=== PATIENT | male | born 1965 | race Hispanic/Latino ===

== ENCOUNTER 2023-08-11 14:06 | Emergency (ER) | payer MEDICAID ==
[~2023-08-11] VITALS: Ht 172.7 cm; Wt 95.3 kg
[2023-08-11] MEDS ORDERED: LIDOCAINE HCL 1% 20 ML VIAL INJ SCH (14:30)
[2023-08-11] MEDS ORDERED: ONDANSETRON 4MG INJ IVP ONE (14:30)
[2023-08-11] MEDS ORDERED: IBUPROFEN 600 MG TABLET PO ONE (14:30)
[2023-08-11] MEDS ORDERED: HYDROCODONE/ACETAMINOPHEN 5/325 MG TAB PO ONE (14:30)
[2023-08-11] MEDS ORDERED: CEPHALEXIN 500 MG CAPSULE PO ONE (15:00)
[2023-08-11] MEDS ORDERED: TETANUS/DIPHTHERIA TOXOID [ADULT] 0.5 ML VIAL IM ONE ×2 (15:17→15:30)
[2023-08-11] MEDS ORDERED: ONDANSETRON ODT 4MG TAB SL ONE (15:30)
[2023-08-11] MEDS ORDERED: BACITRACIN 1 EACH PACKET TP ONE (15:32)
[2023-08-11] MEDS ORDERED: ACET-2079 PO (15:44)
[2023-08-11] MEDS ORDERED: CEPH500B PO (15:44)
[2023-08-11 16:03] VITALS: BP 137/82; PULSE 56; RESP 18; O2SAT 100
== END 2023-08-11 16:04 | disposition home or self-care (01) ==
LOC: EDH 14:06
DX: S61.211A Laceration without foreign body of left index finger without damage to nail, initial encounter (principal); I10 Essential (primary) hypertension; W23.0XXA Caught, crushed, jammed, or pinched between moving objects, initial encounter; Y93.89 Activity, other specified; Y92.89 Other specified places as the place of occurrence of the external cause; Y99.8 Other external cause status
CPT/HCPCS: 99284; 90714; 73140; 90471; J2405

== ENCOUNTER 2023-08-17 12:59 | Emergency (ER) | payer MEDICAID ==
[~2023-08-17 12:59] MED LIST: ACET-2079 PO; CEPH500B PO
== END 2023-08-17 14:04 | disposition left against medical advice (07) ==
LOC: EDH 12:59
DX: S69.90XA Unspecified injury of unspecified wrist, hand and finger(s), initial encounter (principal); Z53.21 Procedure and treatment not carried out due to patient leaving prior to being seen by health care provider

== ENCOUNTER 2023-09-06 15:52 | Emergency (ER) | payer MEDICAID ==
[~2023-09-06] VITALS: Ht 172.7 cm; Wt 95.3 kg
[2023-09-06] MEDS ORDERED: MUPI22OI2 TP (17:27)
[2023-09-06] MEDS ORDERED: AMOX1TAB16 PO (17:27)
[2023-09-06 17:41] VITALS: BP 131/81; PULSE 61; RESP 18; O2SAT 98
== END 2023-09-06 17:43 | disposition home or self-care (01) ==
LOC: EDH 15:52
DX: S61.451A Open bite of right hand, initial encounter (principal); I10 Essential (primary) hypertension; Z79.899 Other long term (current) drug therapy; Z98.890 Other specified postprocedural states; W54.0XXA Bitten by dog, initial encounter; Y93.89 Activity, other specified; Y92.89 Other specified places as the place of occurrence of the external cause; Y99.8 Other external cause status

== ENCOUNTER 2024-08-20 09:59 | Emergency (ER) | payer MEDICAID ==
[~2024-08-20] VITALS: Ht 172.7 cm; Wt 95.3 kg
[~2024-08-20 09:59] MED LIST changes: +AMOX1TAB16 PO; +MUPI22OI2 TP
[2024-08-20] MEDS: DiphenhydrAMINE HCL 50 MG/ML VIAL IV ONE (10:17)
[2024-08-20] MEDS: 0.9%NACL 1000ML 1,000 ML IV ONE (10:17)
[2024-08-20] MEDS: Solu-medROL 40MG VIAL IVP ONE (10:17)
--- NOTE | 2024-08-20 10:40 | ERN ---
General Chief Complaint: Allergic Reaction Stated Complaint: BEE STINGS Time Seen by MD: 10:01 History of Present Illness Initial Comments 59-year-old male presents to the ED for evaluation of bee stings onset P[employer] W[employer]ING. Patient reports head and arm pain, but denies any respiratory distress, shortness a breath, throat swelling or any other associated symptoms. Patient and his son were working on a field when they were both attacked by bees. Patient reports history of HTN. No other medical or surgical history mentioned. Allergies: Coded Allergies: No Known Allergies (Unverified Allergy, Unknown, 08/11/23) Home Meds Active Scripts Prednisone (Prednisone) 20 Mg Tablet, 1 TAB PO TID for 5 Days, #15 TAB 0 Refills Prov:STELLA SALMERON DO 08/20/24 Mupirocin (Mupirocin Ointment) 2 % Oint, 1 APPL TP BID, #15 GM Prov:DYLON CAO 09/06/23 Amoxicillin/Potassium Clav (Amox Tr-K Clv 875-125 mg Tab) 875 Mg-125 Mg Tablet, 1 EACH PO BID for 5 Days, #10 TAB 0 Refills Prov:DYLON CAO 09/06/23 Cephalexin Monohydrate (Keflex) 500 Mg Cap, 500 MG PO QID for 7 Days, #28 CAP Prov:LEXI JOHNSON [facility] 08/11/23 Acetaminophen with Codeine (Acetaminophen-Cod #3 Tablet) 300 Mg-30 Mg Tablet, 1- 2 TAB PO Q4H PRN for PAIN, #60 TAB Prov:LEXI JOHNSON [facility] 08/11/23 Past Medical History Past Medical History: Hypertension Past Surgical History: Other Surgical History Other: BACK SX ROS Dictation Constitutional: Positive bee stings Negative for fever,chills, and weight loss Eyes: Negative for injury, pain,redness, and discharge ENT: Negative for injury,pain or swelling Cardiovascular: Negative for chest pain, palpitations, and edema Respiratory: Negative for shortness of breath, cough, and wheezing, Abdomen/GI: Negative for abdominal pain, nausea, vomiting, diarrhea, and constipation Back: Negative for injury and pain : Negative for injury, bleeding and discharge MS/Extremity: Negative for injury and deformity Skin: Negative for rash, and discoloration Neuro: Negative for headache, weakness, numbness, tingling, and seizure Psych: Negative for suicide ideation, homicidal ideation, and hallucinations Physical Exam Physical Exam Dictation General: awake, alert, multiple general bee stings Head/Face: Normocephalic, atraumatic Eyes: PERRL, EOMI, vision at baseline ENT: oral cavity clear, TMs clear, no signs of infection Neck: Trachea midline, supple, no nuchal rigidity Cardiovascular: RRR, normal S1/S2, No MRGs, no JVD Respiratory: CTAB, no respiratory distress, No rales or wheezes Abdomen: Soft, non-tender, non-distended, normal bowel sounds, no guarding or rebound. Skin: Warm, dry, normal turgor, no rash MS/Extremity: Pulses equal, no cyanosis, neurovascular intact, FROM Neuro: COAx4, GCS 15, strength 5/5, CN 2-12 intact, normal cerebellar exam, normal gait, Psych: Normal behavior, mood, and affect normal MDM MDM: Differential diagnosis: Anaphylaxis, bee stings, allergic reaction Previous outside records reviewed: Old ER visits. Need for hospitalization: Patient does not meet criteria for hospitalization. Need for emergency major/minor surgery: No Patient's prior external medical records from other ER visits were reviewed by me as indicated. Prior testing and results from previous visits were reviewed. Prior tests were taken into account with medical decision making and resource utilization, independent historian/historians were used to obtain complete medical history. I independently interpreted the test that were performed, results were reviewed by me and considered findings on radiology if ordered. Medical management and examination interpretation discussions were had by me with other qualified healthcare professionals as indicated for the patient's care. CC: Multiple bee stings allergic reaction Historian: Patient Comorbidities: HTN Limitations by social determinants of health: None Initially patient's vital is stable. He was pale and diaphoretic. No obvious swelling. Lung sounds are clear. Started on IV fluids, IV Solu-Medrol, IV Benadryl. Monitored in the ER for about an hour. He had no further swelling. His symptoms improved. P.o. tolerant nontoxic no concerning findings. We will discharge with a prescription for prednisone and antihistamine. ED Course Orders Procedure Category Date Status Time 0.9%Nacl 1000ml (Ns PHA 08/20/24 Complete 1000ml) 10:30 Methylprednisolone PHA 08/20/24 Complete Succ 40mg (Solu-Medro 10:30 Diphenhydramine Hcl PHA 08/20/24 Complete (Benadryl Inj) 10:30 Current Medications Medications (Trade) Dose Ordered Sig/Tristan Route PRN Reason Start Time Stop Time Status Last Admin Dose Admin Diphenhydramine HCl (BENAdryl INJ) 50 mg ONCE ONCE IV 08/20/24 10:30 08/20/24 10:31 DC 08/20/24 10:17 Methylprednisolone Sodium Succinate (Solu-medROL 40MG) 40 mg ONCE ONCE IVP 08/20/24 10:30 08/20/24 10:31 DC 08/20/24 10:17 Sodium Chloride 1,000 ml @ 0 mls/hr ONCE ONCE IV 08/20/24 10:30 08/20/24 10:31 DC 08/20/24 10:17 Vital Signs Date Time Temp Pulse Resp B/P (MAP) Pulse Ox O2 Delivery O2 Flow Rate FiO2 08/20/24 11:59 98.1 80 16 138/80 99 Room Air* 0 21 08/20/24 11:29 97.9 90 20 144/76 99 Room Air* 0 21 08/20/24 10:24 98.2 98 20 151/100 96 Room Air* 0 21 08/20/24 10:03 97.9 103 20 140/84 99 Room Air DX & DISP Disposition: Discharge Departure Impression: Primary Impression: Bee sting reaction Additional Impression: Allergic reaction Condition: Stable Scripts Prednisone (Prednisone) 20 Mg Tablet 1 TAB PO TID for 5 Days, #15 TAB 0 Refills Prov: STELLA SALMERON DO 08/20/24 Additional Instructions: You had multiple bee stings today. Here in the emergency department your oxygen level is normal on your lung sounds are clear. You received a dose of IV Solu-Medrol, which is a steroid. You also received an IV fluid bolus and IV Benadryl. I have prescribed prednisone, which is an anti-inflammatory steroid. You can take this 2-3 times per day for your symptoms over the next few days. Once your rash and itchiness goes away, you can stop this medication. You can also take [id number]-rxp-nrnbrke Benadryl 50 mg up to 3 times a day as needed for itching. Please return to the emergency department immediately if you have any concerning symptoms. Referrals: AMY CABRERA MD (PCP) I have reviewed, & agreed with my scribe's, documentation. (Entered by Paloma Martin, acting as a scribe for Dr. Salmeron) I personally scribed for SETLLA SALMERON DO (CHARISMA) on 08/20/24 at 10:40. Electronically submitted by Paloma Martin ([email or web address]). STELLA SALMERON DO Aug 20, 2024 10:40
[2024-08-20] MEDS ORDERED: PRED20TA3 PO (11:39)
[2024-08-20 11:59] VITALS: BP 138/80; PULSE 80; RESP 16; TEMP 98; O2SAT 99
== END 2024-08-20 12:09 | disposition home or self-care (01) ==
LOC: EDH 09:59
DX: T63.441A Toxic effect of venom of bees, accidental (unintentional), initial encounter (principal); I10 Essential (primary) hypertension; Z79.899 Other long term (current) drug therapy; Z98.890 Other specified postprocedural states; Y93.89 Activity, other specified; Y92.79 Other farm location as the place of occurrence of the external cause; Y99.8 Other external cause status
CPT/HCPCS: 99284; 96374; 96361; 96375; J1200; J7030; J2919